=== PATIENT | female | born 1990 | race African-American/Black ===

== ENCOUNTER 2022-02-02 11:55 | Emergency (ER) | payer MEDICAID ==
[~2022-02-02] VITALS: Ht 172.7 cm; Wt 155.1 kg
[2022-02-02] MEDS ORDERED: DEXAMETHASONE 10 MG/ML VIAL IV ONE (16:15)
[2022-02-02] MEDS ORDERED: KETOROLAC 30MG/ML VIAL IV ONE (16:15)
[2022-02-02 16:21] LABS: BASOPHILS % 1.1 % (0.0-2.0); EOSINOPHILS % 1.1 % (0.0-5.0); HEMATOCRIT. 33.5 % (36.0-48.0); HEMOGLOBIN. 11.2 g/dL (12.0-16.0); LYMPHOCYTES % 25.1 % (20.0-50.0); MEAN CORPUSCULAR HEMOGLOBIN 25.9 pg (28.0-32.0); MEAN CORPUSCULAR VOLUME 77.3 fL (81.0-99.0); MEAN PLATELET VOLUME 8.2 fl (7.4-10.4); MONOCYTES % 6.1 % (2.0-8.0); NEUTROPHILS % 66.6 % (40.0-76.0); PLATELET 275 x1000/uL (130-400); RED BLOOD CELL COUNT 4.33 mill/uL (4.2-5.4); RED CELL DISTRIBUTION WIDTH 14.7 % (11.6-14.6)
[2022-02-02 16:36] LABS: CHLORIDE 106 mEq/L (98-107)
[2022-02-02] MEDS ORDERED: AMPICILLIN SOD/SULBACTAM NA 3 G in SODIUM CHLORIDE 0.9% 100 ML IV NR (18:03)
[2022-02-02] MEDS ORDERED: IBUP-2029 MT (20:10)
[2022-02-02] MEDS ORDERED: AMOX-424 MT (20:10)
[2022-02-02 20:49] VITALS: BP 117/71
== END 2022-02-02 20:50 | disposition home or self-care (01) ==
LOC: ER 12:12
DX: M27.2 Inflammatory conditions of jaws (principal)
CPT/HCPCS: 36415; 70487; 80053; 81025; 85025; 96365; 96375; 99285; J0295; J1100; J1885; J7050